=== PATIENT | male | born 1955 | race Caucasian/White ===

== ENCOUNTER 2020-05-19 15:54 | Inpatient (IN) | payer BC, SELFPAY ==
[~2020-05-19] VITALS: Ht 185.4 cm; Wt 54.0 kg
[2020-05-19 16:20] VITALS: BP_SYST 98
[2020-05-19] MEDS ORDERED: NACL 0.9% 1,000 ML IV ONE (16:30)
[2020-05-19 17:09] LABS: CALCIUM 7.1 mg/dL (8.4-11.0); CREATININE 1.09 mg/dL (0.55-1.30)
[2020-05-19 17:11] LABS: EOSINOPHILS % (AUTO) 28.6 % (0.0-4.0); HEMATOCRIT 23.8 % (36-54); HEMOGLOBIN 8.2 g/dL (14.0-18.0); MEAN CORPUSCULAR HEMOGLOBIN 29 pg (27-31); MEAN CORPUSCULAR HGB CONC 34 % (32-36); MEAN CORPUSCULAR VOLUME 83 fL (79.0-98.0); MONOCYTES % (AUTO) 16.4 % (1.7-9.3); NEUTROPHILS % (AUTO) 6.6 % (40.0-70.0); RED BLOOD CELL COUNT(AUTO) 2.85 MIL/uL (4.2-6.2); RED CELL DISTRIBUTION WIDTH 14.8 % (9.0-15.0)
[2020-05-19 17:19] LABS: PLATELET COUNT (AUTO) 6 K/uL (130-430); WHITE BLOOD COUNT (AUTO) 0.1 K/uL (4.8-10.8)
[2020-05-19 17:21] LABS: INR 1.5 (0.80-1.20); POTASSIUM 2.4 mmol/L (3.5-5.1); PROTHROMBIN TIME 14.8 SECS (9.5-12.5)
[2020-05-19 17:27] LABS: BILIRUBIN,URINE 1+ (NEGATIVE); BLOOD, URINE 1+ (NEGATIVE); COLOR,URINE YELLOW (YELLOW); GLUCOSE,URINE NEGATIVE (NEGATIVE); KETONES,URINE NEGATIVE (NEGATIVE); LEUKOCYTE ESTERASE ,URINE NEGATIVE (NEGATIVE); NITRITE, URINE NEGATIVE (NEGATIVE); PROTEIN URINE 2+ (NEGATIVE); UROBILINOGEN,URINE 0.2 (0.2-1.0)
[2020-05-19 17:27] LABS: ALBUMIN 1.6 g/dL (3.4-4.8); TOTAL BILIRUBIN 1.1 mg/dL (0.0-1.0)
[2020-05-19] MEDS ORDERED: PIPERACILLIN/TAZO 3.375 GM in NS 50 ML IV ONE (17:30)
[2020-05-19] MEDS ORDERED: CLINDAMYCIN 900 mg/50mL D5W 50 ML IV ONE (17:30)
[2020-05-19 17:37] LABS: CLARITY/URINE SLIGHTLY HAZY (CLEAR)
[2020-05-19] MEDS ORDERED: KCL 40 mEq in D5W 1000 mL 1,000 ML IV ONE (17:45)
[2020-05-19 18:44] LABS: BACTERIA,URINE None Seen /HPF (None Seen); YEAST,URINE Moderate /HPF (None Seen)
[2020-05-19] MEDS ORDERED: PIPERACILLIN/TAZOBACTAM 3.375 GM/VIAL (ZOSYN) IV ONE (19:45)
[2020-05-19 21:05] LABS: LYMPHOCYTES % (AUTO) 48.4 % (20.5-51.5)
[2020-05-19] MEDS: D5NS 1,000 ML IV SCH (22:52)
[2020-05-20] MEDS: ACETAMINOPHEN 325 MG TABLET PO PRN ×2 (00:46→13:47)
[2020-05-20] MEDS ORDERED: PIPERACILLIN/TAZOBACTAM 3.375 GM/VIAL (ZOSYN) IV ONE ×2 (01:26→05:56)
[2020-05-20] MEDS: PIPERACILLIN/TAZO 3.375/DEX-IS 50 ML IV SCH ×4 (01:37→18:13)
[2020-05-20] MEDS ORDERED: ALBU2.5V7 INH (04:31)
[2020-05-20] MEDS ORDERED: ACET325T PO (04:31)
[2020-05-20] MEDS ORDERED: POTA20TA83 PO (04:43)
[2020-05-20] MEDS ORDERED: MELA1TAB14 PO (04:43)
[2020-05-20] MEDS ORDERED: POLY500W3 PO (04:43)
[2020-05-20] MEDS ORDERED: HYDR2TAB4 PO (04:43)
[2020-05-20] MEDS ORDERED: LORA-259 PO (04:43)
[2020-05-20] MEDS ORDERED: DEXA4TAB PO (04:43)
[2020-05-20] MEDS ORDERED: GABA-533 PO (04:43)
[2020-05-20] MEDS ORDERED: FOLI-43 PO (04:43)
[2020-05-20] MEDS ORDERED: LOPE2CAP PO (04:43)
[2020-05-20] MEDS ORDERED: FEN12PAT TD (04:43)
[2020-05-20] MEDS ORDERED: PANT40TA45 PO (04:43)
[2020-05-20] MEDS ORDERED: MYL80 PO (04:43)
[2020-05-20] MEDS ORDERED: APIX5TAB4 PO (04:43)
[2020-05-20] MEDS ORDERED: TRIM300C24 PO (04:43)
[2020-05-20] MEDS ORDERED: IPRA0.2S53 IH (04:43)
[2020-05-20] MEDS ORDERED: FILG480S2 IJ (04:43)
[2020-05-20] MEDS ORDERED: DRON2.5C22 PO (04:43)
[2020-05-20] MEDS: D5NS 1,000 ML IV SCH ×4 (05:44→21:25)
[2020-05-20 07:58] LABS: EOSINOPHILS % (AUTO) 8.9 % (0.0-4.0); LYMPHOCYTES % (AUTO) 38.5 % (20.5-51.5); MEAN CORPUSCULAR HEMOGLOBIN 29 pg (27-31); MEAN CORPUSCULAR HGB CONC 34 % (32-36); MEAN CORPUSCULAR VOLUME 84 fL (79.0-98.0); MONOCYTES % (AUTO) 39.3 % (1.7-9.3); NEUTROPHILS % (AUTO) 13.3 % (40.0-70.0); RED BLOOD CELL COUNT(AUTO) 2.21 MIL/uL (4.2-6.2); RED CELL DISTRIBUTION WIDTH 14.8 % (9.0-15.0)
[2020-05-20 08:55] LABS: ALBUMIN 1.3 g/dL (3.4-4.8); CREATININE 1.19 mg/dL (0.55-1.30); PHOSPHORUS 1.8 mg/dL (2.7-4.5); TOTAL BILIRUBIN 1.2 mg/dL (0.0-1.0)
[2020-05-20 09:49] LABS: HEMATOCRIT 18.5 % (36-54); HEMOGLOBIN 6.3 g/dL (14.0-18.0); PLATELET COUNT (AUTO) 8 K/uL (130-430); WHITE BLOOD COUNT (AUTO) 0.1 K/uL (4.8-10.8)
[2020-05-20 10:28] LABS: CALCIUM 6.5 mg/dL (8.4-11.0); POTASSIUM 2.8 mmol/L (3.5-5.1)
[2020-05-20] MEDS ORDERED: POTASSIUM CHLORIDE 40 MEQ in NS 250 ML IV ONE (10:45)
[2020-05-20] MEDS ORDERED: CALCIUM GLUCONATE 1 GM/10 ML VIAL IVP ONE (10:45)
[2020-05-20] MEDS ORDERED: FILGRASTIM 300 MCG/ML SUBCUT SCH (17:00)
[2020-05-20] MEDS: TBO-FILGRASTIM 300 MCG/0.5 ML SYRINGE SUBCUT SCH (18:26)
[2020-05-20] MEDS: FLUCONAZOLE 100 mg/ NS 50 ML IV SCH (19:38)
[2020-05-20] MEDS: LORazepam 2 MG/ML VIAL IVP PRN (20:34)
[2020-05-20] MEDS ORDERED: NACL 0.9% 1,000 ML IV STA (23:37)
[2020-05-21] MEDS: NOREPINEPHRINE BITARTRATE 4 MG in D5W 246 ML IV PRN ×2 (00:41→11:36)
[2020-05-21] MEDS: D5NS 1,000 ML IV SCH ×3 (04:05→18:07)
[2020-05-21] MEDS: PIPERACILLIN/TAZO 3.375/DEX-IS 50 ML IV SCH ×4 (06:27→18:02)
[2020-05-21 07:07] LABS: FOLATE (FOLIC ACID) 12.5 ng/mL (>3.0)
[2020-05-21 07:27] LABS: EOSINOPHILS % (AUTO) 6.3 % (0.0-4.0); HEMATOCRIT 22.5 % (36-54); HEMOGLOBIN 7.5 g/dL (14.0-18.0); LYMPHOCYTES % (AUTO) 34.2 % (20.5-51.5); MEAN CORPUSCULAR HEMOGLOBIN 28 pg (27-31); MEAN CORPUSCULAR HGB CONC 33 % (32-36); MEAN CORPUSCULAR VOLUME 85 fL (79.0-98.0); MONOCYTES % (AUTO) 46.4 % (1.7-9.3); NEUTROPHILS % (AUTO) 13.1 % (40.0-70.0); RED BLOOD CELL COUNT(AUTO) 2.65 MIL/uL (4.2-6.2); RED CELL DISTRIBUTION WIDTH 15.2 % (9.0-15.0)
[2020-05-21 07:36] LABS: PLATELET COUNT (AUTO) 12 K/uL (130-430); WHITE BLOOD COUNT (AUTO) 0.1 K/uL (4.8-10.8)
[2020-05-21] MEDS: TBO-FILGRASTIM 300 MCG/0.5 ML SYRINGE SUBCUT SCH ×2 (17:00→18:54)
[2020-05-21] MEDS: FLUCONAZOLE 100 mg/ NS 50 ML IV SCH (19:03)
[2020-05-21] MEDS ORDERED: K PHOS 30 MM in NS 250 ML IV ONE (19:45)
[2020-05-21] MEDS ORDERED: MAGNESIUM SULFATE 4 GM in D5W 250 ML IV ONE (19:45)
[2020-05-21] MEDS ORDERED: SACCHAROMYCES BOULARDII 250 MG CAPSULE (FLORASTOR) PO SCH (21:00)
[2020-05-22] MEDS: D5NS 1,000 ML IV SCH ×4 (00:08→21:00)
[2020-05-22] MEDS: PIPERACILLIN/TAZO 3.375/DEX-IS 50 ML IV SCH ×4 (01:09→18:28)
[2020-05-22] MEDS: LORazepam 2 MG/ML VIAL IVP PRN (04:10)
[2020-05-22 07:26] LABS: MEAN CORPUSCULAR HEMOGLOBIN 28 pg (27-31); MONOCYTES # (AUTO) 0.1 K/uL (0.0-1.0)
[2020-05-22 07:56] LABS: ALBUMIN 1.3 g/dL (3.4-4.8); CREATININE 0.91 mg/dL (0.55-1.30)
[2020-05-22 08:12] LABS: CALCIUM 6.8 mg/dL (8.4-11.0); POTASSIUM 2.5 mmol/L (3.5-5.1)
[2020-05-22] MEDS: LACTOBACILLUS RHAMNOSUS GG 1 CAP CAPSULE PO SCH ×2 (08:46→22:20)
[2020-05-22 09:27] LABS: BASOPHILS % (AUTO) 0.3 % (0.0-2.0); EOSINOPHILS % (AUTO) 1.1 % (0.0-4.0); MEAN CORPUSCULAR HGB CONC 34 % (32-36); MEAN CORPUSCULAR VOLUME 84 fL (79.0-98.0); MONOCYTES % (AUTO) 22.7 % (1.7-9.3); RED BLOOD CELL COUNT(AUTO) 2.16 MIL/uL (4.2-6.2); RED CELL DISTRIBUTION WIDTH 15.1 % (9.0-15.0)
[2020-05-22] MEDS ORDERED: BISACODYL 5 MG TABLET.DR (DULCOLAX) PO ONE (09:30)
[2020-05-22] MEDS ORDERED: DOCUSATE SODIUM 100 MG CAPSULE PO ONE (09:30)
[2020-05-22] MEDS ORDERED: POLYETHYLENE GLYCOL 3350, 17 GM/ POWD.PACK PO ONE (09:30)
[2020-05-22 09:31] LABS: HEMOGLOBIN 6.1 g/dL (14.0-18.0); WHITE BLOOD COUNT (AUTO) 0.3 K/uL (4.8-10.8)
[2020-05-22 09:32] LABS: HEMATOCRIT 18.1 % (36-54); PLATELET COUNT (AUTO) 32 K/uL (130-430)
[2020-05-22 09:56] LABS: C-REACTIVE PROTEIN QUANT 30.6 mg/dL (0-0.5)
[2020-05-22 12:07] LABS: ANTI NUCLEAR AB WITH REFLEX Negative (Negative)
[2020-05-22 12:17] LABS: ERYTHROCYTE SEDIMENTATION RATE 115 MM/HR (0-15)
[2020-05-22] MEDS ORDERED: POTASSIUM CHLORIDE 40 MEQ in NS 250 ML IV ONE (14:00)
[2020-05-22 14:56] LABS: NEUTROPHILS # (AUTO) 0.2 K/uL (1.8-7.7)
[2020-05-22 14:57] LABS: NEUTROPHILS % (AUTO) 60.9 % (40.0-70.0)
[2020-05-22] MEDS: PANTOPRAZOLE SODIUM 40 MG/VIAL (PROTONIX) IVP SCH ×2 (15:25→22:19)
[2020-05-22] MEDS: TBO-FILGRASTIM 300 MCG/0.5 ML SYRINGE SUBCUT SCH (20:40)
[2020-05-22 20:55] VITALS: BP_SYST 144
[2020-05-22] MEDS: FLUCONAZOLE 100 mg/ NS 50 ML IV SCH (21:00)
[2020-05-22 21:18] VITALS: BP_SYST 144
[2020-05-22 22:00] VITALS: BP_SYST 150
[2020-05-22 23:00] VITALS: BP_SYST 147
[2020-05-23] VITALS (11 sets, daily range): BP systolic 138–159
[2020-05-23] MEDS: PIPERACILLIN/TAZO 3.375/DEX-IS 50 ML IV SCH ×4 (00:49→17:44)
[2020-05-23 06:45] LABS: BASOPHILS % (AUTO) 0.5 % (0.0-2.0); EOSINOPHILS % (AUTO) 0.2 % (0.0-4.0); LYMPHOCYTES # (AUTO) 0.1 K/uL (1.0-5.5); LYMPHOCYTES % (AUTO) 9.2 % (20.5-51.5); MEAN CORPUSCULAR HEMOGLOBIN 29 pg (27-31); MEAN CORPUSCULAR HGB CONC 34 % (32-36); MEAN CORPUSCULAR VOLUME 85 fL (79.0-98.0); MONOCYTES # (AUTO) 0.1 K/uL (0.0-1.0); MONOCYTES % (AUTO) 15.8 % (1.7-9.3); NEUTROPHILS % (AUTO) 74.3 % (40.0-70.0); RED BLOOD CELL COUNT(AUTO) 2.42 MIL/uL (4.2-6.2); RED CELL DISTRIBUTION WIDTH 15.1 % (9.0-15.0)
[2020-05-23] MEDS: D5NS 1,000 ML IV SCH ×4 (06:45→17:52)
[2020-05-23 07:25] LABS: ALBUMIN 1.2 g/dL (3.4-4.8); BILIRUBIN,DIRECT 1.3 mg/dL (0.0-0.3); CREATININE 0.83 mg/dL (0.55-1.30)
[2020-05-23 07:31] LABS: CALCIUM 6.8 mg/dL (8.4-11.0)
[2020-05-23 07:59] LABS: C-REACTIVE PROTEIN QUANT 22.1 mg/dL (0-0.5)
[2020-05-23] MEDS ORDERED: DIATR MEGLU/DIATRIZ SOD 30 ML SOLUTION PO ONE (08:11)
[2020-05-23 08:56] LABS: HEMATOCRIT 20.4 % (36-54); WHITE BLOOD COUNT (AUTO) 0.6 K/uL (4.8-10.8)
[2020-05-23 08:57] LABS: NEUTROPHILS # (AUTO) 0.5 K/uL (1.8-7.7); PLATELET COUNT (AUTO) 19 K/uL (130-430)
[2020-05-23] MEDS ORDERED: POTASSIUM CHLORIDE 40 MEQ, LIDOCAINE JECT 2% PF 100 MG 75 MG in NS 250 ML IV ONE (09:00)
[2020-05-23] MEDS: PANTOPRAZOLE SODIUM 40 MG/VIAL (PROTONIX) IVP SCH ×2 (09:17→22:48)
[2020-05-23] MEDS: POLYETHYLENE GLYCOL 3350, 17 GM/ POWD.PACK PO SCH (09:17)
[2020-05-23] MEDS: DOCUSATE SODIUM 100 MG CAPSULE PO SCH (09:17)
[2020-05-23] MEDS: LACTOBACILLUS RHAMNOSUS GG 1 CAP CAPSULE PO SCH ×3 (09:17→22:48)
[2020-05-23 10:08] LABS: ERYTHROCYTE SEDIMENTATION RATE 89 MM/HR (0-15)
[2020-05-23] MEDS: TBO-FILGRASTIM 300 MCG/0.5 ML SYRINGE SUBCUT SCH (17:11)
[2020-05-23] MEDS: FLUCONAZOLE 100 mg/ NS 50 ML IV SCH (18:44)
[2020-05-23] MEDS: POTASSIUM CHLORIDE 20 MEQ TAB.PRT.SR PO SCH ×2 (21:00→22:48)
[2020-05-24 00:59] VITALS: BP_SYST 157
[2020-05-24] MEDS: D5NS 1,000 ML IV SCH ×2 (05:42→13:58)
[2020-05-24] MEDS: PIPERACILLIN/TAZO 3.375/DEX-IS 50 ML IV SCH ×2 (05:42)
[2020-05-24] MEDS: HYDROcodone/ACETAMIN 10-325 MG TAB PO PRN ×3 (05:49→20:25)
[2020-05-24 08:00] VITALS: BP_SYST 150
[2020-05-24 10:26] LABS: HEMATOCRIT 30.2 % (36-54); HEMOGLOBIN 10.4 g/dL (14.0-18.0); MEAN CORPUSCULAR HEMOGLOBIN 30 pg (27-31); MEAN CORPUSCULAR HGB CONC 34 % (32-36); MEAN CORPUSCULAR VOLUME 86 fL (79.0-98.0); RED CELL DISTRIBUTION WIDTH 14.6 % (9.0-15.0); WHITE BLOOD COUNT (AUTO) 2.1 K/uL (4.8-10.8)
[2020-05-24 11:03] LABS: PLATELET COUNT (AUTO) 19 K/uL (130-430)
[2020-05-24 11:12] LABS: CALCIUM 7.2 mg/dL (8.4-11.0); CREATININE 0.94 mg/dL (0.55-1.30); PHOSPHORUS 3.2 mg/dL (2.7-4.5)
[2020-05-24] MEDS ORDERED: POTASSIUM CHLORIDE 40 MEQ in NS 250 ML IV ONE (11:45)
[2020-05-24] MEDS: metroNIDAZOLE 500 mg/NS 100 ML IV SCH ×2 (11:47→22:28)
[2020-05-24] MEDS: POLYETHYLENE GLYCOL 3350, 17 GM/ POWD.PACK PO SCH (11:47)
[2020-05-24] MEDS: LACTOBACILLUS RHAMNOSUS GG 1 CAP CAPSULE PO SCH ×2 (11:50→20:24)
[2020-05-24] MEDS: POTASSIUM CHLORIDE 20 MEQ TAB.PRT.SR PO SCH ×3 (11:50→20:31)
[2020-05-24] MEDS: PANTOPRAZOLE SODIUM 40 MG/VIAL (PROTONIX) IVP SCH ×2 (11:51→20:24)
[2020-05-24] MEDS: DOCUSATE SODIUM 100 MG CAPSULE PO SCH (11:56)
[2020-05-24] MEDS: CEFEPIME 2 GM in D5W 100 ML IV SCH ×2 (11:56→22:33)
[2020-05-24 14:01] LABS: BAND % (MANUAL) 13 % (0-6); BASOPHILS % (MANUAL) 0 % (0-2); EOSINOPHILS % (MANUAL) 0 % (0-7); LYMPHOCYTES % (MANUAL) 11 % (20-46); MONOCYTES % (MANUAL) 14 % (0-11)
[2020-05-24] MEDS: D5/0.45 NS 1,000 ML IV SCH (14:30)
[2020-05-24] MEDS ORDERED: MAGNESIUM SULFATE 50 ML IV ONE (14:30)
[2020-05-24 20:00] VITALS: BP_SYST 137
[2020-05-24] MEDS: FLUCONAZOLE 100 mg/ NS 50 ML IV SCH (20:22)
[2020-05-25 00:13] VITALS: BP_SYST 131
[2020-05-25] MEDS: FAMOTIDINE 20 MG TABLET PO SCH ×3 (01:16→21:56)
[2020-05-25] MEDS: TBO-FILGRASTIM 300 MCG/0.5 ML SYRINGE SUBCUT SCH ×2 (01:17→17:00)
[2020-05-25] MEDS: HYDROcodone/ACETAMIN 10-325 MG TAB PO PRN ×3 (07:50→23:28)
[2020-05-25] MEDS: CEFEPIME 2 GM in D5W 100 ML IV SCH ×2 (07:54→23:28)
[2020-05-25 08:00] VITALS: BP_SYST 137
[2020-05-25] MEDS: POTASSIUM CHLORIDE 20 MEQ TAB.PRT.SR PO SCH ×2 (08:05→21:57)
[2020-05-25] MEDS: LACTOBACILLUS RHAMNOSUS GG 1 CAP CAPSULE PO SCH ×2 (08:05→21:56)
[2020-05-25] MEDS: PANTOPRAZOLE SODIUM 40 MG/VIAL (PROTONIX) IVP SCH ×2 (08:05→21:57)
[2020-05-25] MEDS: metroNIDAZOLE 500 mg/NS 100 ML IV SCH ×2 (08:06→21:56)
[2020-05-25] MEDS: DOCUSATE SODIUM 100 MG CAPSULE PO SCH (08:06)
[2020-05-25] MEDS: POLYETHYLENE GLYCOL 3350, 17 GM/ POWD.PACK PO SCH (08:06)
[2020-05-25 08:49] LABS: BASOPHILS % (AUTO) 0.5 % (0.0-2.0); EOSINOPHILS % (AUTO) 0.1 % (0.0-4.0); HEMATOCRIT 27.4 % (36-54); HEMOGLOBIN 9.4 g/dL (14.0-18.0); LYMPHOCYTES # (AUTO) 0.2 K/uL (1.0-5.5); LYMPHOCYTES % (AUTO) 6.2 % (20.5-51.5); MEAN CORPUSCULAR HEMOGLOBIN 30 pg (27-31); MEAN CORPUSCULAR HGB CONC 34 % (32-36); MEAN CORPUSCULAR VOLUME 86 fL (79.0-98.0); MONOCYTES # (AUTO) 0.3 K/uL (0.0-1.0); NEUTROPHILS # (AUTO) 2.6 K/uL (1.8-7.7); NEUTROPHILS % (AUTO) 83.2 % (40.0-70.0); RED BLOOD CELL COUNT(AUTO) 3.19 MIL/uL (4.2-6.2); RED CELL DISTRIBUTION WIDTH 14.7 % (9.0-15.0); WHITE BLOOD COUNT (AUTO) 3.1 K/uL (4.8-10.8)
[2020-05-25 09:02] LABS: ALBUMIN 1.5 g/dL (3.4-4.8); CREATININE 0.95 mg/dL (0.55-1.30); PHOSPHORUS 3.6 mg/dL (2.7-4.5); TOTAL BILIRUBIN 1.1 mg/dL (0.0-1.0)
[2020-05-25 10:00] LABS: CALCIUM 6.9 mg/dL (8.4-11.0); POTASSIUM 1.8 mmol/L (3.5-5.1)
[2020-05-25] MEDS: D5/0.45 NS 1,000 ML IV SCH (10:30)
[2020-05-25 10:41] LABS: PLATELET COUNT (AUTO) 13 K/uL (130-430)
[2020-05-25] MEDS: POTASSIUM CHLORIDE 40 MEQ in NS 250 ML IV SCH ×2 (11:29→14:58)
[2020-05-25 12:05] LABS: C-REACTIVE PROTEIN QUANT 10.8 mg/dL (0-0.5)
[2020-05-25] MEDS: HYDROcodone/ACETAMIN 5-325 MG TAB (NORCO/ VICODIN) PO PRN (12:50)
[2020-05-25] MEDS: ONDANSETRON HCL 4 MG/2 ML VIAL IVP PRN (16:02)
[2020-05-25 19:17] LABS: ERYTHROCYTE SEDIMENTATION RATE 35 MM/HR (0-15)
[2020-05-25 20:00] VITALS: BP_SYST 131
[2020-05-25] MEDS: FLUCONAZOLE 100 mg/ NS 50 ML IV SCH (20:01)
[2020-05-26 00:12] VITALS: BP_SYST 125
[2020-05-26 08:31] LABS: ALBUMIN 1.6 g/dL (3.4-4.8); CALCIUM 7.1 mg/dL (8.4-11.0); CREATININE 0.85 mg/dL (0.55-1.30)
[2020-05-26 08:41] LABS: POTASSIUM 2.4 mmol/L (3.5-5.1)
[2020-05-26 08:48] LABS: BASOPHILS % (AUTO) 0.4 % (0.0-2.0); EOSINOPHILS % (AUTO) 0.1 % (0.0-4.0); HEMATOCRIT 26.5 % (36-54); LYMPHOCYTES # (AUTO) 0.3 K/uL (1.0-5.5); LYMPHOCYTES % (AUTO) 5.7 % (20.5-51.5); MEAN CORPUSCULAR HEMOGLOBIN 29 pg (27-31); MEAN CORPUSCULAR HGB CONC 34 % (32-36); MEAN CORPUSCULAR VOLUME 86 fL (79.0-98.0); MONOCYTES # (AUTO) 0.3 K/uL (0.0-1.0); MONOCYTES % (AUTO) 5.9 % (1.7-9.3); NEUTROPHILS # (AUTO) 4.7 K/uL (1.8-7.7); PLATELET COUNT (AUTO) 50 K/uL (130-430); RED BLOOD CELL COUNT(AUTO) 3.07 MIL/uL (4.2-6.2); WHITE BLOOD COUNT (AUTO) 5.3 K/uL (4.8-10.8)
[2020-05-26] MEDS: POLYETHYLENE GLYCOL 3350, 17 GM/ POWD.PACK PO SCH (09:00)
[2020-05-26] MEDS ORDERED: POTASSIUM CHLORIDE 80 MEQ in NS 500 ML IV ONE (09:00)
[2020-05-26] MEDS: DOCUSATE SODIUM 100 MG CAPSULE PO SCH (09:00)
[2020-05-26] MEDS: HYDROcodone/ACETAMIN 10-325 MG TAB PO PRN ×3 (09:39→19:17)
[2020-05-26] MEDS: LACTOBACILLUS RHAMNOSUS GG 1 CAP CAPSULE PO SCH ×2 (09:40→22:30)
[2020-05-26] MEDS: FAMOTIDINE 20 MG TABLET PO SCH ×2 (09:40→22:21)
[2020-05-26] MEDS: POTASSIUM CHLORIDE 20 MEQ TAB.PRT.SR PO SCH ×2 (09:41→22:21)
[2020-05-26] MEDS: PANTOPRAZOLE SODIUM 40 MG/VIAL (PROTONIX) IVP SCH ×2 (09:44→22:20)
[2020-05-26] MEDS: CEFEPIME 2 GM in D5W 100 ML IV SCH ×2 (09:56→22:31)
[2020-05-26 12:15] VITALS: BP_SYST 148
[2020-05-26 12:24] LABS: C-REACTIVE PROTEIN QUANT 8.5 mg/dL (0-0.5)
[2020-05-26 14:15] LABS: NEUTROPHILS % (AUTO) 87.9 % (40.0-70.0)
[2020-05-26] MEDS: metroNIDAZOLE 500 mg/NS 100 ML IV SCH ×2 (15:21→22:20)
[2020-05-26] MEDS: ONDANSETRON HCL 4 MG/2 ML VIAL IVP PRN ×2 (15:52→22:20)
[2020-05-26 16:20] VITALS: BP_SYST 152
[2020-05-26] MEDS: TBO-FILGRASTIM 300 MCG/0.5 ML SYRINGE SUBCUT SCH (17:00)
[2020-05-26] MEDS: FLUCONAZOLE 100 mg/ NS 50 ML IV SCH (19:20)
[2020-05-26 20:00] VITALS: BP_SYST 145
[2020-05-26] MEDS: D5/0.45 NS 1,000 ML IV SCH (22:16)
[2020-05-27 00:02] LABS: ERYTHROCYTE SEDIMENTATION RATE 130 MM/HR (0-15)
[2020-05-27 01:44] VITALS: BP_SYST 152
[2020-05-27] MEDS: ONDANSETRON HCL 4 MG/2 ML VIAL IVP PRN ×6 (03:12→23:34)
[2020-05-27] MEDS: HYDROcodone/ACETAMIN 10-325 MG TAB PO PRN ×6 (03:13→23:34)
[2020-05-27] MEDS: D5/0.45 NS 1,000 ML IV SCH ×5 (07:05→21:04)
[2020-05-27 07:41] LABS: CREATININE 0.87 mg/dL (0.55-1.30)
[2020-05-27 07:46] LABS: BASOPHILS % (AUTO) 0.3 % (0.0-2.0); EOSINOPHILS % (AUTO) 0.1 % (0.0-4.0); HEMATOCRIT 25.3 % (36-54); HEMOGLOBIN 8.7 g/dL (14.0-18.0); LYMPHOCYTES # (AUTO) 0.2 K/uL (1.0-5.5); LYMPHOCYTES % (AUTO) 6.1 % (20.5-51.5); MEAN CORPUSCULAR HEMOGLOBIN 29 pg (27-31); MEAN CORPUSCULAR HGB CONC 34 % (32-36); MEAN CORPUSCULAR VOLUME 85 fL (79.0-98.0); MONOCYTES # (AUTO) 0.3 K/uL (0.0-1.0); MONOCYTES % (AUTO) 8.7 % (1.7-9.3); NEUTROPHILS # (AUTO) 2.9 K/uL (1.8-7.7); RED BLOOD CELL COUNT(AUTO) 2.96 MIL/uL (4.2-6.2); WHITE BLOOD COUNT (AUTO) 3.4 K/uL (4.8-10.8)
[2020-05-27 08:00] VITALS: BP_SYST 132
[2020-05-27 08:08] LABS: CALCIUM 6.9 mg/dL (8.4-11.0); POTASSIUM 2.7 mmol/L (3.5-5.1)
[2020-05-27] MEDS: DOCUSATE SODIUM 100 MG CAPSULE PO SCH (09:00)
[2020-05-27] MEDS: POLYETHYLENE GLYCOL 3350, 17 GM/ POWD.PACK PO SCH (09:00)
[2020-05-27] MEDS: CEFEPIME 2 GM in D5W 100 ML IV SCH ×2 (09:14→20:55)
[2020-05-27] MEDS: metroNIDAZOLE 500 mg/NS 100 ML IV SCH ×2 (09:14→20:55)
[2020-05-27] MEDS: FAMOTIDINE 20 MG TABLET PO SCH ×2 (09:15→20:52)
[2020-05-27] MEDS: PANTOPRAZOLE SODIUM 40 MG/VIAL (PROTONIX) IVP SCH ×2 (09:15→20:53)
[2020-05-27] MEDS: LACTOBACILLUS RHAMNOSUS GG 1 CAP CAPSULE PO SCH ×2 (09:15→20:52)
[2020-05-27] MEDS: POTASSIUM CHLORIDE 20 MEQ TAB.PRT.SR PO SCH ×2 (09:15→20:52)
[2020-05-27 09:17] LABS: PLATELET COUNT (AUTO) 40 K/uL (130-430)
[2020-05-27] MEDS ORDERED: NS 0.45% IV ONE (10:30)
[2020-05-27] MEDS ORDERED: POTASSIUM CHLORIDE IV ONE (10:30)
[2020-05-27 10:50] LABS: C-REACTIVE PROTEIN QUANT 7.6 mg/dL (0-0.5)
[2020-05-27 11:59] VITALS: BP_SYST 130
[2020-05-27 13:20] LABS: ERYTHROCYTE SEDIMENTATION RATE 30 MM/HR (0-15)
[2020-05-27 14:56] LABS: NEUTROPHILS % (AUTO) 84.8 % (40.0-70.0)
[2020-05-27] MEDS: TBO-FILGRASTIM 300 MCG/0.5 ML SYRINGE SUBCUT SCH (17:11)
[2020-05-27] MEDS: FLUCONAZOLE 100 mg/ NS 50 ML IV SCH (18:22)
[2020-05-27 20:19] VITALS: BP_SYST 120
[2020-05-28] VITALS: BP_SYST 118
[2020-05-28] MEDS: HYDROcodone/ACETAMIN 5-325 MG TAB (NORCO/ VICODIN) PO PRN (07:19)
[2020-05-28 08:00] VITALS: BP_SYST 127
[2020-05-28] MEDS: ONDANSETRON HCL 4 MG/2 ML VIAL IVP PRN ×2 (08:52→15:27)
[2020-05-28 08:58] LABS: ALBUMIN 1.4 g/dL (3.4-4.8); CREATININE 0.81 mg/dL (0.55-1.30); POTASSIUM 3.3 mmol/L (3.5-5.1); TOTAL BILIRUBIN 0.7 mg/dL (0.0-1.0)
[2020-05-28] MEDS: D5/0.45 NS 1,000 ML IV SCH (08:59)
[2020-05-28] MEDS: DOCUSATE SODIUM 100 MG CAPSULE PO SCH (09:00)
[2020-05-28] MEDS: POLYETHYLENE GLYCOL 3350, 17 GM/ POWD.PACK PO SCH (09:00)
[2020-05-28 09:01] LABS: BASOPHILS % (AUTO) 0.4 % (0.0-2.0); HEMATOCRIT 26.3 % (36-54); HEMOGLOBIN 8.9 g/dL (14.0-18.0); LYMPHOCYTES # (AUTO) 0.4 K/uL (1.0-5.5); LYMPHOCYTES % (AUTO) 4.8 % (20.5-51.5); MEAN CORPUSCULAR HEMOGLOBIN 29 pg (27-31); MEAN CORPUSCULAR HGB CONC 34 % (32-36); MEAN CORPUSCULAR VOLUME 86 fL (79.0-98.0); MONOCYTES # (AUTO) 0.5 K/uL (0.0-1.0); MONOCYTES % (AUTO) 7.4 % (1.7-9.3); NEUTROPHILS # (AUTO) 6.3 K/uL (1.8-7.7); NEUTROPHILS % (AUTO) 87.4 % (40.0-70.0); RED BLOOD CELL COUNT(AUTO) 3.05 MIL/uL (4.2-6.2); RED CELL DISTRIBUTION WIDTH 15.2 % (9.0-15.0)
[2020-05-28 09:05] LABS: CALCIUM 6.5 mg/dL (8.4-11.0)
[2020-05-28 10:24] LABS: WHITE BLOOD COUNT (AUTO) 7.3 K/uL (4.8-10.8)
[2020-05-28 10:59] LABS: ERYTHROCYTE SEDIMENTATION RATE 30 MM/HR (0-15)
[2020-05-28 11:39] LABS: C-REACTIVE PROTEIN QUANT 5.6 mg/dL (0-0.5)
[2020-05-28] MEDS ORDERED: CALCIUM GLUCONATE 1 GM in NS 100 ML IV ONE (12:15)
[2020-05-28] MEDS ORDERED: CALCIUM GLUCONATE 1 GM/10 ML VIAL ONE (12:54)
[2020-05-28] MEDS: metroNIDAZOLE 500 mg/NS 100 ML IV SCH (13:02)
[2020-05-28] MEDS: PANTOPRAZOLE SODIUM 40 MG/VIAL (PROTONIX) IVP SCH (13:03)
[2020-05-28] MEDS: CEFEPIME 2 GM in D5W 100 ML IV SCH (13:03)
[2020-05-28] MEDS: FAMOTIDINE 20 MG TABLET PO SCH (13:04)
[2020-05-28] MEDS: POTASSIUM CHLORIDE 20 MEQ TAB.PRT.SR PO SCH (13:04)
[2020-05-28] MEDS: LACTOBACILLUS RHAMNOSUS GG 1 CAP CAPSULE PO SCH (13:04)
[2020-05-28 13:06] LABS: PLATELET COUNT (AUTO) 55 K/uL (130-430)
[2020-05-28] MEDS: HYDROcodone/ACETAMIN 10-325 MG TAB PO PRN (15:26)
[2020-05-28 16:26] VITALS: BP_SYST 127
== END 2020-05-28 17:20 | disposition short-term general hospital (02) | DRG 871 ==
LOC: SED 15:54 → SIC 18:31 → STU 05-23 08:53
PROVIDERS: ADMIT Preventive Medicine Preventive Medicine/Occupational Environmental Medicine; ATTEND Preventive Medicine Preventive Medicine/Occupational Environmental Medicine
PROC: 30233R1 Transfusion of Nonautologous Platelets into Peripheral Vein, Percutaneous Approach (ICD-10-PCS; principal; 2020-05-20)
PROC: 30233N1 Transfusion of Nonautologous Red Blood Cells into Peripheral Vein, Percutaneous Approach (ICD-10-PCS; 2020-05-22)
DX: A41.9 Sepsis, unspecified organism (principal); E43 Unspecified severe protein-calorie malnutrition; G93.41 Metabolic encephalopathy; J18.9 Pneumonia, unspecified organism; J96.01 Acute respiratory failure with hypoxia; K65.1 Peritoneal abscess; B37.49 Other urogenital candidiasis; C85.90 Non-Hodgkin lymphoma, unspecified, unspecified site; C83.30 Diffuse large B-cell lymphoma, unspecified site; D61.818 Other pancytopenia; D84.9 Immunodeficiency, unspecified; E87.1 Hypo-osmolality and hyponatremia; Z68.1 Body mass index [BMI] 19.9 or less, adult; R73.9 Hyperglycemia, unspecified; E83.39 Other disorders of phosphorus metabolism; E83.42 Hypomagnesemia; E83.51 Hypocalcemia; K52.9 Noninfective gastroenteritis and colitis, unspecified; E83.52 Hypercalcemia; E87.6 Hypokalemia; R19.00 Intra-abdominal and pelvic swelling, mass and lump, unspecified site; Z20.828 Contact with and (suspected) exposure to other viral communicable diseases; Z92.21 Personal history of antineoplastic chemotherapy; Z88.8 Allergy status to other drugs, medicaments and biological substances
CPT/HCPCS: 36415; 71045; 76376; 80048; 80053; 80076; 81000-TC; 82607; 82746; 82962; 83605; 83735-TC; 84100-TC; 84484; 85007; 85025; 85027; 85610-TC; 85651-TC; 85730-TC; 86038; 86140; 86886; 86900; 86901; 86920; 87040-TC; 87045-TC; 87046; 87081; 87086; 87230-TC; 93005; 96365; 99291; C9113; G0378; J0610; J0692; J1447; J1450; J2405; J2543; J3475; J3480; J3490; J7030; J7040; J7042; J7050; J7060; P9021; P9034; Q9964